=== PATIENT | male | born 1990 | race Caucasian/White ===

== ENCOUNTER 2018-03-07 22:38 | Emergency (ER) | payer MEDICAID, OTHER ==
--- NOTE | 2018-03-07 22:54 | EDPHY ---
H & P Stated Complaint: etoh/marijuana, ams Time Seen by Provider: 03/07/18 22:50 HPI/ROS: Chief Complaint: Altered mental status, vomiting HPI: 27-year-old male was found wandering on a stranger's property. Patient was confused. He then became nauseated and vomited multiple times. Patient admits to drinking multiple shots of bourbon tonight and doing several dabs of marijuana. He has vomited several times. He is oriented somnolent. He has history of bipolar disease. Takes Abilify. States he is compliant with medications. Denies any other ingestions. ROS: 10 point Review of Systems is negative except as noted in the HPI. PMH: Bipolar disorder Social History: No smoking, occasional alcohol, occasional marijuana Family History: non-contributory Physical Exam: Gen: Awake, Alert, smells of alcohol and emesis HEENT: Nose: no rhinorrhea Eyes: PERRLA, EOMI Mouth: Moist mucosa Neck: Supple, no JVD Chest: nontender, lungs clear to auscultation Heart: S1, S2 normal, no murmur Abd: Soft, non-tender, no guarding Back: no CVA tenderness, no midline tenderness Ext: no edema, non-tender Skin: no rash Neuro: CN II-XII intact, Sensation grossly intact, Strength 5/5 in bilateral upper and lower extremities - Medical/Surgical History Other PMH: anxiety, hernia repair, bipolar - Social History Smoking Status: Never smoked Constitutional: Initial Vital Signs Temperature (C) 36.3 C 03/07/18 22:48 Heart Rate 111 H 03/07/18 22:48 Respiratory Rate 18 03/07/18 22:48 Blood Pressure 130/78 H 03/07/18 22:48 O2 Sat (%) 94 03/07/18 22:48 O2 Delivery Mode Room Air Allergies/Adverse Reactions: amoxicillin Allergy (Verified 05/22/16 13:07) azithromycin [From Zithromax] Allergy (Verified 05/22/16 13:07) Home Medications: Medication Instructions Recorded ARIPiprazole [Abilify 10 mg (*)] 05/22/16 Propranolol HCl 05/22/16 lamoTRIgine [LaMICtal] 05/22/16 Medical Decision Making ED Course/Re-evaluation: 0500 Patient is now awake and appropriate. Ambulating unassisted to the bathroom. No current complaints. Patient is tolerating oral fluids. Patient is ready for discharge with sober ride. - Data Points Medications Given: Discontinued Medications Sodium Chloride (Ns) 1,000 mls @ 0 mls/hr IV ONCE ONE; Wide Open PRN Reason: Protocol Stop: 03/07/18 22:58 Last Admin: 03/07/18 22:58 Dose: 1,000 mls Sodium Chloride (Ns) 1,000 mls @ 0 mls/hr IV ONCE ONE; Wide Open PRN Reason: Protocol Stop: 03/07/18 22:58 Last Admin: 03/07/18 23:03 Dose: Not Given Ondansetron HCl (Zofran) 4 mg IVP EDNOW ONE Stop: 03/07/18 22:58 Last Admin: 03/07/18 22:59 Dose: 4 mg Departure - Departure Disposition: Home, Routine, Self-Care Clinical Impression: Alcoholic intoxication Condition: Good Instructions: Alcohol Intoxication (ED) Referrals: Patient,NotPresent [Primary Care Provider] - As per Instructions
[2018-03-07] MEDS ORDERED: ONDANSETRON 4 MG/2 ML VIAL IVP ONE (22:57)
[2018-03-07] MEDS ORDERED: NS 1,000 ML IV ONE ×2 (22:57)
[2018-03-08 06:54] VITALS: BP 127/71
== END 2018-03-08 07:39 | disposition home or self-care (01) ==
LOC: EDUNIT#
DX: F10.920 Alcohol use, unspecified with intoxication, uncomplicated (principal); E86.9 Volume depletion, unspecified
CPT/HCPCS: 96374; J2405